=== PATIENT | female | born 1975 | race Caucasian/White ===

== ENCOUNTER 2017-07-05 06:31 | Emergency (ER) | payer OTHER ==
[~2017-07-05] VITALS: Ht 154.9 cm; Wt 75.9 kg
[2017-07-05] MEDS ORDERED: METO50 PO (06:43)
[2017-07-05] MEDS ORDERED: PYRI100T2 PO (06:43)
[2017-07-05] MEDS ORDERED: OMEP20 PO (06:43)
[2017-07-05] MEDS ORDERED: CYAN250010 PO (06:43)
[2017-07-05] MEDS ORDERED: SERT50TA12 PO (06:43)
[2017-07-05] MEDS ORDERED: LORA10TA7 PO (06:43)
[2017-07-05] MEDS ORDERED: GABA-531 PO (06:43)
[2017-07-05] MEDS ORDERED: FAMO20 PO (06:43)
[2017-07-05] MEDS ORDERED: SODIUM CHLORIDE 0.9% 1,000 ML IV ONE (07:15)
[2017-07-05] MEDS ORDERED: KETOROLAC TROMETHAMINE 30 MG/ML VIAL IVP ONE (07:15)
[2017-07-05] MEDS ORDERED: METOCLOPRAMIDE HCL 5 MG/ML 2 ML VIAL IVP ONE (07:15)
[2017-07-05] MEDS ORDERED: DiphenhydrAMINE HCL 50 MG/ML VIAL IVP ONE (07:15)
[2017-07-05 07:50] LABS: BASOPHILS % (AUTO) 1.2 % (0.0-2.0); EOSINOPHILS % (AUTO) 0.9 % (1.0-6.0); HEMATOCRIT 36.5 % (36-46); HEMOGLOBIN 12.6 g/dL (12.0-16.0); LYMPHOCYTES # (AUTO) 1.8 K/uL (1.0-4.8); LYMPHOCYTES % (AUTO) 20.8 % (22.0-44.0); MEAN CORPUSCULAR HEMOGLOBIN 30.1 pg (26.0-34.0); MEAN CORPUSCULAR HGB CONC 34.6 G/dL (31.0-37.0); MEAN CORPUSCULAR VOLUME 87 fL (80-100); MONOCYTES # (AUTO) 0.4 K/uL (0.1-1.0); MONOCYTES % (AUTO) 4.7 % (2.0-9.0); NEUTROPHILS # (AUTO) 6.4 K/uL (1.8-7.7); NEUTROPHILS % (AUTO) 72.4 % (40.0-70.0); PLATELET COUNT (AUTO) 344 K/uL (150-450); RED CELL DISTRIBUTION WIDTH 13.1 % (11.5-14.5); WHITE BLOOD COUNT (AUTO) 8.8 K/uL (4.5-11.0)
[2017-07-05 08:04] LABS: ANION GAP 10 mmol/L (8-16); CALCIUM, TOTAL 8.6 mg/dL (8.8-10.5); CARBON DIOXIDE 26 mmol/L (22-29); CHLORIDE 104 mmol/L (98-107); CREATININE 0.55 mg/dL (0.60-1.30); GLOMERULAR FILTR. RATE CALC > 60 mL/min (>60); POTASSIUM 3.9 mmol/L (3.5-5.1); SODIUM SERUM 140 mmol/L (136-145); UREA NITROGEN, BLOOD 10 mg/dL (7-18)
[2017-07-05 08:11] LABS: ALANINE AMINOTRANSFERASE 36 U/L (12-78); ASPARTATE AMINOTRANSFERASE 26 U/L (15-37); BILIRUBIN,TOTAL 0.4 mg/dL (0.1-1.0); TOTAL PROTEIN, SERUM 7.4 g/dL (6.4-8.2)
[2017-07-05 08:40] VITALS: BP 149/96
== END 2017-07-05 08:51 | disposition home or self-care (01) ==
LOC: EMS 06:33
DX: R51 Headache (principal); R07.89 Other chest pain; R11.2 Nausea with vomiting, unspecified; K21.9 Gastro-esophageal reflux disease without esophagitis; I10 Essential (primary) hypertension
CPT/HCPCS: 36415; 70450; 71010; 80053; 84484; 84703; 85025; 93005; 96361; 96374; 96375; 99285; J1200; J1885; J2765; J7030